=== PATIENT | male | born 1985 | race African-American/Black ===

== ENCOUNTER 2017-12-09 15:45 | Emergency (ER) | payer SELFPAY ==
[~2017-12-09] VITALS: Ht 170.2 cm; Wt 60.0 kg
[2017-12-09 15:48] VITALS: BP 134/70
[2017-12-09] MEDS ORDERED: BACITRACIN ZINC OINT UDPKT TOP ONE (16:30)
== END 2017-12-09 16:35 | disposition home or self-care (01) ==
LOC: ER 15:56
DX: S00.81XA Abrasion of other part of head, initial encounter (principal); Y08.89XA Assault by other specified means, initial encounter; Y93.89 Activity, other specified; Y92.89 Other specified places as the place of occurrence of the external cause; Y99.8 Other external cause status
CPT/HCPCS: 99283